=== PATIENT | female | born 1980 | race African-American/Black ===

== ENCOUNTER 2023-10-05 21:24 | Emergency (ER) | payer OTHER ==
[~2023-10-05] VITALS: Ht 167.6 cm; Wt 79.4 kg
[2023-10-05 22:50] VITALS: BP 119/80; TEMP 98.1; O2SAT 98
[2023-10-05] MEDS ORDERED: CLIN300C3 PO (22:52)
== END 2023-10-05 23:13 | disposition home or self-care (01) ==
LOC: ER 21:29
DX: M27.69 Other endosseous dental implant failure (principal)